=== PATIENT | male | born 1965 ===

== ENCOUNTER 2017-08-17 09:20 | Day surgery (SDC) | payer BC ==
[2017-08-15 08:22] VITALS: BMI 29.5
[2017-08-17] MEDS ORDERED: Lidocaine Hydrochloride 10 ML INJ ONE (11:50)
[2017-08-17] MEDS ORDERED: Bupivacaine HCl 0.25% PF (30 ml) Inj ONE (11:51)
[2017-08-17] MEDS ORDERED: Bacitracin Ointment 30 GM TUBE ONE (12:19)
[2017-08-17 12:36] VITALS: BP 139/69; PULSE 73; RESP 16; TEMP 97.7; O2SAT 100
--- NOTE | 2017-08-19 07:00 | OP ---
PROCEDURE DATE: 08/17/2017 PREOPERATIVE DIAGNOSIS: Posterior neck mass, 3 cm. POSTOPERATIVE DIAGNOSIS: Posterior neck mass, 3 cm. PROCEDURE PERFORMED: Wide deep excision (radical resection) of posterior neck mass with advancement flap closure. SURGEON: Pablo Hernandez MD ANESTHESIA: General. BLOOD LOSS: About 30 mL. POSTOP CONDITION: Stable. INDICATIONS FOR SURGERY: This is a 52-year-old male with a posterior neck mass who undergo wide deep excision. DESCRIPTION OF PROCEDURE: The patient was taken to the operating room and placed in the prone position and the posterior neck was prepped and draped. Local anesthesia was infiltrated. A generous elliptical incision was made surrounding the mass. It was dissected into the fascia and muscle layer of the neck and completely excised. Bleeding was controlled using a Bovie. A larger blood vessel was repaired. Generous advancement flaps were raised by raising full-thickness flaps including muscle and fascia. Counter incision was made. A 24 square centimeters total advancement flap closure was performed with multiple layers of Monocryl, subcuticular Monocryl and skin clips. The patient tolerated the procedure well and returned to recovery room in stable condition. Pablo Hernandez MD
== END 2017-08-17 13:10 | disposition home or self-care (01) ==
LOC: C.SDS 09:20
PROVIDERS: ATTEND Surgery
DX: L92.8 Other granulomatous disorders of the skin and subcutaneous tissue (principal)